=== PATIENT | female | born 1965 | race Caucasian/White ===

== ENCOUNTER 2018-08-15 10:35 | Outpatient (CLI) | payer OTHER | END 2018-08-15 10:36 | disposition home or self-care (01) | LOC: BICMAMMO 10:35 | PROVIDERS: ATTEND Clinical Nurse Specialist Medical-Surgical | DX: Z12.31 Encounter for screening mammogram for malignant neoplasm of breast (principal); E11.65 Type 2 diabetes mellitus with hyperglycemia | CPT/HCPCS: 77063; 77067 ==

== ENCOUNTER 2020-09-01 16:10 | Outpatient (CLI) | payer OTHER, MEDICAID ==
--- NOTE | 2020-09-02 08:43 | MMO ---
Bilateral MAMMO Bilat Screen [facility]. CLINICAL HISTORY: Patient is 54 years old and is seen for screening. The patient has no family history of breast cancer. The patient has no personal history of cancer. VIEWS: The views performed were: bilateral craniocaudal with tomosynthesis and bilateral mediolateral oblique with tomosynthesis. FILMS COMPARED: The present examination has been compared to prior imaging studies performed at [facility] on 11/18/2013, 07/22/2015, 08/13/2017 and 08/15/2018. This study has been interpreted with the assistance of computer-aided detection. MAMMOGRAM FINDINGS: The breasts are heterogeneously dense, which could obscure a lesion on mammography. Finding 1: There are stable benign appearing calcifications seen in both breasts. Finding 2: There are stable benign appearing densities seen in both breasts. There are no suspicious masses, suspicious calcifications, or new areas of architectural distortion. IMPRESSION: THERE IS NO MAMMOGRAPHIC EVIDENCE OF MALIGNANCY. A ROUTINE FOLLOW-UP MAMMOGRAM IN 1 YEAR IS RECOMMENDED. THE RESULTS OF THIS EXAM WERE SENT TO THE PATIENT. ACR BI-RADS Category 2 - Benign finding MAMMOGRAPHY NOTE: 1. A negative mammogram report should not delay a biopsy if a dominant of clinically suspicious mass is present. 2. Approximately 10% to 15% of breast cancers are not detected by mammography. 3. Adenosis and dense breasts may obscure an underlying neoplasm. Reported by: MARIVEL LEHMAN MD Electonically Signed: [id number]
== END 2020-09-01 16:11 | disposition home or self-care (01) ==
LOC: BICMAMMO 16:10
PROVIDERS: ATTEND Clinical Nurse Specialist Medical-Surgical
DX: Z12.31 Encounter for screening mammogram for malignant neoplasm of breast (principal)
CPT/HCPCS: 77063; 77067

== ENCOUNTER 2021-09-20 09:22 | Outpatient (CLI) | payer OTHER, MEDICAID | END 2021-09-20 09:23 | disposition home or self-care (01) | LOC: BICMAMMO 09:22 | PROVIDERS: ATTEND Clinical Nurse Specialist Medical-Surgical | DX: Z12.31 Encounter for screening mammogram for malignant neoplasm of breast (principal) | CPT/HCPCS: 77063; 77067 ==

== ENCOUNTER 2023-10-04 13:02 | Outpatient (CLI) | payer MEDICARE | END 2023-10-04 13:03 | disposition home or self-care (01) | LOC: BICMAMMO 13:02 | PROVIDERS: ATTEND Family Medicine | DX: Z12.31 Encounter for screening mammogram for malignant neoplasm of breast (principal) | CPT/HCPCS: 77063; 77067 ==

== ENCOUNTER 2025-05-12 12:16 | Inpatient (IN) | payer MEDICARE ==
[~2025-05-12 12:16] MED LIST: Iopamidol-370 76% 500 ML MDV (1 ML CHARGE) ONE
[2025-05-12 13:01] LABS: #Basophils Less than 0.03 10x3/uL (0.0-0.2); #Eosinophils Less than 0.03 10x3/uL (0.0-0.7); #Monocytes 0.13 10x3/uL (0.11-0.59); #Neutrophils 6.67 10x3/uL (1.40-6.50); %Basophils 0.1 % (0.0-1.0); %Eosinophils 0.0 % (0.0-10.0); %Lymphocytes 5.5 % (21.0-51.0); %Monocytes 1.8 % (0.0-10.0); %Neutrophils 92.5 % (42.0-75.0); Hematocrit 43.8 % (36.0-47.0); Hemoglobin 13.9 g/dL (12.0-16.0); Mean Corpuscular Hemoglobin 26.2 pg (27.0-31.0); Mean Corpuscular Volume 82.6 fL (78.0-98.0); Platelet Count 157 10x3/uL (130-400); Red Blood Cell (RBC) Count 5.30 mill/uL (4.20-5.40); White Blood Cell (WBC) Count 7.22 10x3/uL (4.8-10.8)
[2025-05-12 13:16] LABS: INR-International Normal Ratio 1.1; Prothrombin Time 14.2 sec (12.0-14.7)
[2025-05-12 13:19] LABS: PTT 36.8 sec (22.9-36.1)
[2025-05-12 13:20] LABS: ALT (SGPT) 17 U/L (Less than 34); AST (SGOT) 28 U/L (11-34); Albumin 4.0 g/dL (3.1-4.5); Alkaline Phosphatase 74 U/L (40-110); Anion Gap 16 mmol/L (10-20); BUN (Urea Nitrogen) 25 mg/dL (9.8-20.1); Bilirubin, Total 0.7 mg/dL (0.3-1.2); Calc. Creatinine Clearance 0 mL/min (70-130); Calcium 9.2 mg/dL (7.8-10.44); Carbon Dioxide 22 mmol/L (22-29); Chloride 102 mmol/L (98-107); Globulin 3.5 g/dL (2.4-3.5); Glucose 133 mg/dL (70-105); Potassium 3.7 mmol/L (3.5-5.1); Sodium 136 mmol/L (136-145)
[2025-05-12 13:27] LABS: Troponin I Less than 0.010 ng/mL (< 0.028)
[2025-05-12] MEDS ORDERED: Ondansetron PF 4 MG/2 ML Vial ONE ×2 (13:46→19:51)
[2025-05-12 14:53] LABS: INR-International Normal Ratio 1.2; Prothrombin Time 15.1 sec (12.0-14.7)
[2025-05-12 14:54] LABS: PTT 36.3 sec (22.9-36.1)
[2025-05-12 15:48] LABS: Bacteria/HPF None Seen HPF (None Seen); CAUTI Indications for Culture Alt mental st,lethar; Glucose, Urine (Dipstick) Greater than 1000 mg/dL (Negative); Leukocyte Negative Leu/uL (Negative); Protein, Urine (Dipstick) Negative (Neg-Trace); RBC/HPF 0-3 HPF (0-3); Specific Gravity, Urine 1.044 (1.002-1.036)
[2025-05-12 15:49] LABS: Urine Culture Reflex No No
[2025-05-12 16:37] LABS: Actual Bicarbonate (HCO3v) 19.5 mEq/L (22-28); Base Excess -4.8 mEq/L (-2.0 to +3.0); Calcium, Ionized (venous) 1.05 mmol/L (1.16-1.32); Chloride (VBG) 105 mmol/L (98-106); Hematocrit-VBG 38 % (36.0-47.0); Hemoglobin (Hb) 12.8 g/dL (11.7-16.0); Potassium (VBG) 3.45 mmol/L (3.70-5.30); Sodium 136 mmol/L (133-146)
[2025-05-12] MEDS ORDERED: NOREPINEPHRINE 8 MG/250 ML-D5W 250 ML ONE (18:22)
[2025-05-12] MEDS ORDERED: Glucagon 1 MG/ML KIT IM PRN (18:34)
[2025-05-12] MEDS ORDERED: Dextrose 50% Abboject 50 ML SYRINGE SLOW IVP PRN (18:34)
[2025-05-12] MEDS ORDERED: Senokot S 8.6-50 MG TAB PO PRN (18:38)
[2025-05-12] MEDS ORDERED: Ondansetron PF 4 MG/2 ML Vial IVP PRN (18:38)
[2025-05-12] MEDS ORDERED: Calcium Carbonate 500 MG ChewTAB PO PRN (18:38)
[2025-05-12] MEDS ORDERED: Electrolyte Replacement Protocol 1 EACH FS SCH (18:45)
[2025-05-12 18:46] LABS: Magnesium 1.5 mg/dL (1.6-2.6)
[2025-05-12] MEDS ORDERED: Etomidate 40 MG (20 mL) VIAL ONE (19:29)
[2025-05-12] MEDS ORDERED: Acetaminophen 325 MG (10.15 ML) UDCUP PO PRN (19:33)
[2025-05-12] MEDS ORDERED: SUCCINYLCHOLINE/SOD CL,ISO/PF 200 MG/10 ML SYRINGE FS ONE (19:41)
[2025-05-12] MEDS ORDERED: PHENYLEPHRINE-NS 100 MCG/ML 10 ML SYRINGE ONE (19:56)
[2025-05-12] MEDS ORDERED: Rocuronium Bromide 10 MG/ML (10ML VIAL) ONE (19:56)
[2025-05-12] MEDS ORDERED: SUGAMMADEX SODIUM 200 MG/2 ML VIAL ONE (20:15)
[2025-05-12] MEDS ORDERED: Pantoprazole 40 MG DR.TAB PO SCH (21:00)
[2025-05-12] MEDS: Mupirocin 1 GM TUBE NASAL DECOLONIZATION TP SCH (23:39)
[2025-05-12 23:53] LABS: Anion Gap 17 mmol/L (10-20); BUN (Urea Nitrogen) 30 mg/dL (9.8-20.1); Calc. Creatinine Clearance 81 mL/min (70-130); Calcium 7.3 mg/dL (7.8-10.44); Carbon Dioxide 10 mmol/L (22-29); Chloride 116 mmol/L (98-107); Glucose 106 mg/dL (70-105); Potassium 3.0 mmol/L (3.5-5.1); Sodium 140 mmol/L (136-145)
[2025-05-13] MEDS: Potassium Bicarbonate/Cit Ac 20 MEQ TAB PO SCH (02:04)
[2025-05-13] MEDS: Magnesium 2 GM/50 ML(in water) 2 GM in Premix 1 BAG IVPB SCH (02:13)
[2025-05-13] MEDS: Vasopressin In 0.9 % NaCl 100 ML ONE (02:14)
[2025-05-13] MEDS: NOREPINEPHRINE 8 MG/250 ML-D5W 250 ML IVPB PRN (02:15)
[2025-05-13] MEDS: Potassium Chloride 20 MEQ in Premix 1 BAG IVPB SCH (02:21)
[2025-05-13] MEDS: Sodium Bicarb 50 MEQ/50 ML Abboject 8.4% SYRINGE IVP SCH (04:32)
[2025-05-13 05:46] LABS: Hematocrit 33.5 % (36.0-47.0); Hemoglobin 10.6 g/dL (12.0-16.0); Mean Corpuscular Hemoglobin 26.6 pg (27.0-31.0); Mean Corpuscular Volume 84.0 fL (78.0-98.0); Platelet Count 70 10x3/uL (130-400); Red Blood Cell (RBC) Count 3.99 mill/uL (4.20-5.40); White Blood Cell (WBC) Count 15.65 10x3/uL (4.8-10.8)
[2025-05-13 05:52] LABS: ALT (SGPT) 32 U/L (Less than 34); AST (SGOT) 72 U/L (11-34); Albumin 2.9 g/dL (3.1-4.5); Alkaline Phosphatase 57 U/L (40-110); Anion Gap 14 mmol/L (10-20); BUN (Urea Nitrogen) 30 mg/dL (9.8-20.1); Bilirubin, Total 0.6 mg/dL (0.3-1.2); Calc. Creatinine Clearance 81 mL/min (70-130); Calcium 7.0 mg/dL (7.8-10.44); Carbon Dioxide 20 mmol/L (22-29); Chloride 113 mmol/L (98-107); Globulin 2.4 g/dL (2.4-3.5); Glucose 106 mg/dL (70-105); Potassium 4.1 mmol/L (3.5-5.1); Sodium 143 mmol/L (136-145)
[2025-05-13 05:53] LABS: CRP,High Sensitivity (Inhouse) 18.58 mg/dL (< or = 0.5)
[2025-05-13] MEDS: Vancomycin (BATCH) 2.5 GM in Premix 1 BAG IVPB SCH (05:53)
[2025-05-13] MEDS: Vasopressin In 0.9 % NaCl 100 ML IV SCH (05:59)
[2025-05-13] MEDS: Albumin 25% 25 GM (100 mL) BOT IVPB SCH (06:07)
[2025-05-13 06:25] LABS: INR-International Normal Ratio 2.2; Prothrombin Time 24.2 sec (12.0-14.7)
[2025-05-13 06:26] LABS: PTT 53.3 sec (22.9-36.1)
[2025-05-13 06:32] LABS: Platelet Adequacy Comment Platelets Decreased; RBC Morphology Within Normal Limits; Smudge Cells 4.7 %
[2025-05-13] MEDS: Mupirocin 1 GM TUBE NASAL DECOLOIZATION TP SCH (08:23)
[2025-05-13] MEDS: Pantoprazole 40 MG DR.TAB PO SCH (08:23)
[2025-05-13] MEDS ORDERED: Vancomycin 1 GM in Premix 1 BAG IVPB SCH (09:00)
[2025-05-13 10:50] LABS: Anion Gap 15 mmol/L (10-20); BUN (Urea Nitrogen) 28 mg/dL (9.8-20.1); Calc. Creatinine Clearance 96 mL/min (70-130); Calcium 7.2 mg/dL (7.8-10.44); Carbon Dioxide 19 mmol/L (22-29); Chloride 114 mmol/L (98-107); Glucose 99 mg/dL (70-105); Potassium 4.2 mmol/L (3.5-5.1); Sodium 144 mmol/L (136-145)
[2025-05-13] MEDS: Multivit, Therapeutic 1 TAB PO SCH (21:10)
[2025-05-13] MEDS: Furosemide 20 MG (2 mL) VIAL SLOW IVP SCH (21:10)
[2025-05-13] MEDS: Acetaminophen 325 MG TAB PO PRN (21:11)
[2025-05-14 04:49] LABS: ALT (SGPT) 35 U/L (Less than 34); AST (SGOT) 55 U/L (11-34); Albumin 3.0 g/dL (3.1-4.5); Alkaline Phosphatase 83 U/L (40-110); Anion Gap 12 mmol/L (10-20); BUN (Urea Nitrogen) 19 mg/dL (9.8-20.1); Bilirubin, Total 0.6 mg/dL (0.3-1.2); Calc. Creatinine Clearance 128 mL/min (70-130); Calcium 7.7 mg/dL (7.8-10.44); Carbon Dioxide 24 mmol/L (22-29); Chloride 114 mmol/L (98-107); Globulin 2.6 g/dL (2.4-3.5); Glucose 96 mg/dL (70-105); Magnesium 1.8 mg/dL (1.6-2.6); Potassium 3.3 mmol/L (3.5-5.1); Sodium 147 mmol/L (136-145)
[2025-05-14 05:02] LABS: Hematocrit 33.0 % (36.0-47.0); Hemoglobin 10.4 g/dL (12.0-16.0); Mean Corpuscular Hemoglobin 26.5 pg (27.0-31.0); Mean Corpuscular Volume 84.0 fL (78.0-98.0); Platelet Count 63 10x3/uL (130-400); Red Blood Cell (RBC) Count 3.93 mill/uL (4.20-5.40); White Blood Cell (WBC) Count 17.34 10x3/uL (4.8-10.8)
[2025-05-14 05:07] VITALS: BMI 40.7
[2025-05-14 06:33] LABS: Anisocytosis SLIGHT = 6-15 cells HPF (0-5); Burr Cells SLIGHT = 2-5 cells HPF (0-1); Ovalocytes SLIGHT = 2-5 cells HPF (0-1); Platelet Adequacy Comment Platelets Decreased; Poikilocytosis SLIGHT = 6-15 cells HPF (0-5); Polychromasia SLIGHT = 2-3 cells HPF (0-2); Smudge Cells 7.5 %
[2025-05-14] MEDS: Magnesium 2 GM/50 ML(in water) Premix IVPB SCH (06:50)
[2025-05-14 07:03] LABS: INR-International Normal Ratio 1.9; Prothrombin Time 22.1 sec (12.0-14.7)
[2025-05-14 07:04] LABS: Fibrinogen 694 mg/dL (253-463); PTT 53.6 sec (22.9-36.1)
[2025-05-14 07:21] LABS: SARS-CoV-2 E Target Negative; SARS-CoV-2 N2 Target Negative; SARS-CoV-2 NAA Rapid Test Not Detected (NotDetected); SARS-CoV-2 RdRP gene Negative
[2025-05-14 07:22] LABS: Platelet Count 64 10x3/uL (130-400)
[2025-05-14 08:07] LABS: D-Dimer Test Greater than 20.00 mcg/mL (0.27-0.43)
[2025-05-14] MEDS: Potassium Bicarbonate/Cit Ac 20 MEQ TAB PO SCH ×2 (09:51→16:29)
[2025-05-14] MEDS: Furosemide 40 MG (4 mL) VIAL SLOW IVP SCH (11:19)
[2025-05-14] MEDS: Magnesium 2 GM/50 ML BAG (IN WATER) ONE (12:24)
[2025-05-14 15:19] LABS: Potassium 3.2 mmol/L (3.5-5.1)
[2025-05-15 03:54] LABS: Hematocrit 31.1 % (36.0-47.0); Hemoglobin 9.8 g/dL (12.0-16.0); Mean Corpuscular Hemoglobin 26.1 pg (27.0-31.0); Mean Corpuscular Volume 82.7 fL (78.0-98.0); Platelet Count 75 10x3/uL (130-400); Red Blood Cell (RBC) Count 3.76 mill/uL (4.20-5.40); White Blood Cell (WBC) Count 22.47 10x3/uL (4.8-10.8)
[2025-05-15 04:23] LABS: Platelet Adequacy Comment Platelets Decreased; RBC Morphology Within Normal Limits; Smudge Cells 7.0 %
[2025-05-15] MEDS: Multivit, Therapeutic 1 TAB PO SCH (08:13)
[2025-05-16 05:16] LABS: #Basophils 0.05 10x3/uL (0.0-0.2); #Eosinophils 0.04 10x3/uL (0.0-0.7); #Monocytes 0.85 10x3/uL (0.11-0.59); #Neutrophils 9.48 10x3/uL (1.40-6.50); %Basophils 0.4 % (0.0-1.0); %Eosinophils 0.3 % (0.0-10.0); %Lymphocytes 18.4 % (21.0-51.0); %Monocytes 6.6 % (0.0-10.0); %Neutrophils 73.8 % (42.0-75.0); Hematocrit 32.0 % (36.0-47.0); Hemoglobin 10.3 g/dL (12.0-16.0); Mean Corpuscular Hemoglobin 26.1 pg (27.0-31.0); Mean Corpuscular Volume 81.2 fL (78.0-98.0); Platelet Count 96 10x3/uL (130-400); Red Blood Cell (RBC) Count 3.94 mill/uL (4.20-5.40); White Blood Cell (WBC) Count 12.84 10x3/uL (4.8-10.8)
[2025-05-16] MEDS: Insulin Glargine 30 UNITS/0.3 ML VIAL SC SCH (08:38)
[2025-05-16] MEDS: Magnesium Oxide 400 MG TAB PO SCH (08:40)
[2025-05-16] MEDS: Lisinopril 10 MG TAB PO SCH (08:40)
[2025-05-16] MEDS: FISH OIL PO SCH (08:41)
[2025-05-16] MEDS: [UNRECOGNIZED DRUG - OTHER] PO SCH (08:41)
[2025-05-16] MEDS: POTASSIUM CITRATE 99 MG PO SCH (08:41)
[2025-05-16] MEDS: Multivitamin W/ Minerals 1 TAB PO SCH (08:41)
[2025-05-16] MEDS: DULAGLUTIDE 3 MG/0.5 ML SC SCH (08:43)
[2025-05-16] MEDS: Ketorolac Tromethamine 30 MG (1 mL) VIAL IVP SCH (12:42)
[2025-05-16] MEDS: Ketorolac Tromethamine 30 MG (1 mL) VIAL IVP PRN (20:37)
[2025-05-17 07:32] LABS: ALT (SGPT) 34 U/L (Less than 34); AST (SGOT) 30 U/L (11-34); Albumin 2.9 g/dL (3.1-4.5); Alkaline Phosphatase 111 U/L (40-110); Anion Gap 15 mmol/L (10-20); BUN (Urea Nitrogen) 21 mg/dL (9.8-20.1); Bilirubin, Total 0.5 mg/dL (0.3-1.2); Calc. Creatinine Clearance 190 mL/min (70-130); Calcium 8.7 mg/dL (7.8-10.44); Carbon Dioxide 21 mmol/L (22-29); Chloride 108 mmol/L (98-107); Globulin 3.3 g/dL (2.4-3.5); Glucose 80 mg/dL (70-105); Potassium 3.4 mmol/L (3.5-5.1); Sodium 141 mmol/L (136-145)
[2025-05-17 07:34] LABS: #Basophils 0.03 10x3/uL (0.0-0.2); #Eosinophils 0.09 10x3/uL (0.0-0.7); #Monocytes 1.08 10x3/uL (0.11-0.59); #Neutrophils 5.86 10x3/uL (1.40-6.50); %Basophils 0.3 % (0.0-1.0); %Eosinophils 1.0 % (0.0-10.0); %Lymphocytes 22.5 % (21.0-51.0); %Monocytes 11.7 % (0.0-10.0); %Neutrophils 63.4 % (42.0-75.0); Hematocrit 34.7 % (36.0-47.0); Hemoglobin 11.0 g/dL (12.0-16.0); Mean Corpuscular Hemoglobin 25.3 pg (27.0-31.0); Mean Corpuscular Volume 80.0 fL (78.0-98.0); Platelet Count 125 10x3/uL (130-400); Red Blood Cell (RBC) Count 4.34 mill/uL (4.20-5.40); White Blood Cell (WBC) Count 9.24 10x3/uL (4.8-10.8)
[2025-05-18 06:08] LABS: Anion Gap 13 mmol/L (10-20); BUN (Urea Nitrogen) 21 mg/dL (9.8-20.1); Calc. Creatinine Clearance 174 mL/min (70-130); Calcium 8.8 mg/dL (7.8-10.44); Carbon Dioxide 23 mmol/L (22-29); Chloride 107 mmol/L (98-107); Glucose 128 mg/dL (70-105); Potassium 3.9 mmol/L (3.5-5.1); Sodium 139 mmol/L (136-145)
[2025-05-18 09:03] VITALS: BP 117/71; TEMP 97.9
[2025-05-18] MEDS: Fluconazole 100 MG TAB PO SCH (12:54)
== END 2025-05-18 16:45 | disposition home health service (06) | DRG 853 ==
LOC: ERS 12:16 → SDC/OP 19:37 → CCU 21:29 → IMCU/EMU 05-15 01:27 → T4-A 05-15 13:23
PROVIDERS: ADMIT Internal Medicine; ATTEND Family Medicine
PROC: 0T778DZ Dilation of Left Ureter with Intraluminal Device, Via Natural or Artificial Opening Endoscopic (ICD-10-PCS; principal; 2025-05-12)
PROC: 3E03329 Introduction of Other Anti-infective into Peripheral Vein, Percutaneous Approach (ICD-10-PCS; 2025-05-12)
PROC: 3E033XZ Introduction of Vasopressor into Peripheral Vein, Percutaneous Approach (ICD-10-PCS; 2025-05-12)
PROC: 30233J1 Transfusion of Nonautologous Serum Albumin into Peripheral Vein, Percutaneous Approach (ICD-10-PCS; 2025-05-12)
PROC: 02HV33Z Insertion of Infusion Device into Superior Vena Cava, Percutaneous Approach (ICD-10-PCS; 2025-05-13)
PROC: 4A02X4A Measurement of Cardiac Electrical Activity, Guidance, External Approach (ICD-10-PCS; 2025-05-13)
DX: A41.51 Sepsis due to Escherichia coli [E. coli] (principal); J96.01 Acute respiratory failure with hypoxia; R65.21 Severe sepsis with septic shock; E87.20 Acidosis, unspecified; D68.9 Coagulation defect, unspecified; N13.6 Pyonephrosis; N17.9 Acute kidney failure, unspecified; Z16.12 Extended spectrum beta lactamase (ESBL) resistance; Z83.3 Family history of diabetes mellitus; G47.30 Sleep apnea, unspecified; I12.9 Hypertensive chronic kidney disease with stage 1 through stage 4 chronic kidney disease, or unspecified chronic kidney disease; E11.22 Type 2 diabetes mellitus with diabetic chronic kidney disease; N18.2 Chronic kidney disease, stage 2 (mild); E83.42 Hypomagnesemia; K80.20 Calculus of gallbladder without cholecystitis without obstruction; Z98.51 Tubal ligation status; Z96.651 Presence of right artificial knee joint; E86.0 Dehydration; R91.8 Other nonspecific abnormal finding of lung field; E27.8 Other specified disorders of adrenal gland; E78.00 Pure hypercholesterolemia, unspecified; M25.561 Pain in right knee; B37.31 Acute candidiasis of vulva and vagina; B00.9 Herpesviral infection, unspecified
CPT/HCPCS: 36415; 36416; 51701; 70450; 71045; 71275; 74177; 74420; 80048; 80053; 81001; 82533; 82805; 83036; 83605; 83690; 83735; 83880; 84100; 84145; 84484; 85025; 85049; 85300; 85362; 85384; 85610; 85730; 86141; 86480; 87040; 87070; 87077; 87149; 87186; 87205; 93005; 94640; 94760; 96374; 96375; C2617; J1815; J1885; J1940; J2185; J2270; J2405; J2543; J3373; J3475; J3480; J7030; J7120; J7620; P9045; P9047; Q9967; U0002

== ENCOUNTER 2025-06-01 09:50 | Emergency (ER) | payer MEDICARE ==
[2025-06-01] MEDS ORDERED: Iopamidol-370 76% 500 ML MDV (1 ML CHARGE) ONE (10:11)
[2025-06-01 10:52] LABS: #Basophils 0.04 10x3/uL (0.0-0.2); #Eosinophils 0.03 10x3/uL (0.0-0.7); #Monocytes 0.38 10x3/uL (0.11-0.59); #Neutrophils 2.83 10x3/uL (1.40-6.50); %Basophils 0.7 % (0.0-1.0); %Eosinophils 0.5 % (0.0-10.0); %Lymphocytes 43.2 % (21.0-51.0); %Monocytes 6.6 % (0.0-10.0); %Neutrophils 48.8 % (42.0-75.0); Hematocrit 39.9 % (36.0-47.0); Hemoglobin 12.7 g/dL (12.0-16.0); Mean Corpuscular Hemoglobin 26.6 pg (27.0-31.0); Mean Corpuscular Volume 83.6 fL (78.0-98.0); Platelet Count 336 10x3/uL (130-400); Red Blood Cell (RBC) Count 4.77 mill/uL (4.20-5.40); White Blood Cell (WBC) Count 5.79 10x3/uL (4.8-10.8)
[2025-06-01] MEDS ORDERED: Ketorolac Tromethamine 30 MG (1 mL) VIAL ONE (11:09)
[2025-06-01 11:13] LABS: ALT (SGPT) 21 U/L (Less than 34); AST (SGOT) 22 U/L (11-34); Albumin 3.7 g/dL (3.1-4.5); Alkaline Phosphatase 90 U/L (40-110); Anion Gap 14 mmol/L (10-20); BUN (Urea Nitrogen) 19 mg/dL (9.8-20.1); Bilirubin, Total 0.4 mg/dL (0.3-1.2); Calc. Creatinine Clearance 0 mL/min (70-130); Calcium 9.4 mg/dL (7.8-10.44); Carbon Dioxide 26 mmol/L (22-29); Chloride 106 mmol/L (98-107); Globulin 3.6 g/dL (2.4-3.5); Glucose 70 mg/dL (70-105); Lipase 29 U/L (8-78); Potassium 4.0 mmol/L (3.5-5.1); Sodium 142 mmol/L (136-145)
[2025-06-01 11:36] LABS: Bacteria/HPF None Seen HPF (None Seen); CAUTI Indications for Culture Dysuria,urgency,freq; Glucose, Urine (Dipstick) Greater than 1000 mg/dL (Negative); Leukocyte Negative Leu/uL (Negative); Protein, Urine (Dipstick) Negative (Neg-Trace); RBC/HPF 0-3 HPF (0-3); Specific Gravity, Urine 1.026 (1.002-1.036); WBC/HPF 0-3 HPF (0-3); Yeast-Budding 1+ HPF (None Seen)
[2025-06-01 11:39] LABS: Urine Culture Reflex No No
[2025-06-01] MEDS ORDERED: Fluconazole 100 MG TAB ONE (12:28)
== END 2025-06-01 15:52 | disposition home or self-care (01) ==
LOC: ERS 09:50
DX: N20.0 Calculus of kidney (principal); B37.9 Candidiasis, unspecified; E11.9 Type 2 diabetes mellitus without complications; I10 Essential (primary) hypertension
CPT/HCPCS: 74177; 80053; 81001; 83690; 85025; 96374; 99284; J1885; Q9967; 36415

== ENCOUNTER 2025-07-07 12:39 | Day surgery (SDC) | payer MEDICARE ==
[2025-07-06 11:43] VITALS: BMI 37.8
[2025-07-07 14:07] LABS: Anion Gap 14 mmol/L (10-20); BUN (Urea Nitrogen) 13 mg/dL (9.8-20.1); Calc. Creatinine Clearance 161 mL/min (70-130); Calcium 9.1 mg/dL (7.8-10.44); Carbon Dioxide 25 mmol/L (22-29); Chloride 107 mmol/L (98-107); Glucose 95 mg/dL (70-105); Potassium 3.7 mmol/L (3.5-5.1); Sodium 142 mmol/L (136-145)
[2025-07-07] MEDS ORDERED: fentaNYL PF 100 MCG/2 ML SYRINGE ONE (16:12)
[2025-07-07] MEDS ORDERED: PROPOFOL 20 ML ONE (16:12)
[2025-07-07] MEDS ORDERED: Lidocaine 1% PF 5 ML VIAL ONE (16:12)
[2025-07-07] MEDS ORDERED: Ondansetron PF 4 MG/2 ML Vial ONE (16:13)
[2025-07-07] MEDS ORDERED: Dextrose 50% Abboject 50 ML SYRINGE ONE (16:32)
[2025-07-07] MEDS ORDERED: CEFAZOLIN 1 GM VIAL ONE (16:52)
[2025-07-07] MEDS ORDERED: Ketorolac Tromethamine 30 MG (1 mL) VIAL ONE (17:28)
== END 2025-07-07 18:26 | disposition home or self-care (01) ==
LOC: SDC 12:39
PROVIDERS: ATTEND Urology
PROC: 0TC78ZZ Extirpation of Matter from Left Ureter, Via Natural or Artificial Opening Endoscopic (ICD-10-PCS; principal; 2025-07-07)
PROC: 0T778DZ Dilation of Left Ureter with Intraluminal Device, Via Natural or Artificial Opening Endoscopic (ICD-10-PCS; 2025-07-07)
DX: N20.1 Calculus of ureter (principal); N12 Tubulo-interstitial nephritis, not specified as acute or chronic; Z98.51 Tubal ligation status; Z96.651 Presence of right artificial knee joint
CPT/HCPCS: 52356; 74420; 80048; 82962; C1758; C2617; J0690; J1100; J1885; J2405; J2704; J7999; Q9967; 36416